=== PATIENT | male | born 1960 | race Caucasian/White ===

== ENCOUNTER 2024-02-08 12:14 | Emergency (ER) | payer MEDICARE ==
[2024-02-08 12:19] VITALS: TEMP 97.3
--- NOTE | 2024-02-08 13:05 | ED ---
Neck Injury/Pain HPI - General Chief Complaint: Neck Pain/Injury Stated Complaint: lt arm numb Time Seen by Provider: 02/08/24 13:01 Source: patient, RN notes reviewed Mode of arrival: ambulatory Limitations: no limitations - History of Present Illness Initial Comments: 63-year-old male presented to the ER with a chief complaint of neck pain. Patient states he underwent cervical spine fusion in July or August 2023. This was completed at [facility]. Patient reports about 4 days ago he was walking up the stairs in his garage patient states his supporting foot slipped causing him to jarr neck. Denies falling. Patient states since this incident he has been having an increase of pain to his neck. He describes it as "muscle spasms". He does state it is intermittent in nature. Patient also reports paresthesias to the left upper extremity. He does report a chronic history of this but since jarring incident this has been increased. Patient also was describing lumbar back pain and urinary dribbling. He states he will urinate and after urinating he will notice dribbling of urine in his undergarments. He has no history of prostate issues. He denies dysuria, hematuria, saddle paresthesias, fevers, abdominal pain, constipation/diarrhea. No bowel incontinence/retention. Patient reports his current pain is a 5 out of 10. He was sent here for urgent care for further evaluation. No other complaints. - Related Data Previous Rx's Medication Instructions Recorded predniSONE 50 mg PO DAILY #5 tab 02/08/24 Allergies Allergy/AdvReac Type Severity Reaction Status Date / Time No Known Allergies Allergy Verified 02/08/24 12:18 Review of Systems ROS Statement: Those systems with pertinent positive or pertinent negative responses have been documented in the HPI. ROS Other: All systems not noted in ROS Statement are negative. Past Medical History Past Medical History: No Reported History Past Surgical History: Orthopedic Surgery Additional Past Surgical History / Comment(s): plate in neck General Exam Limitations: no limitations General appearance: alert, in no apparent distress Head exam: Present: atraumatic, normocephalic, normal inspection Neck exam: Present: other (Healed midline surgical incision. There is muscle tenderness around C7) Respiratory exam: Present: normal lung sounds bilaterally. Absent: respiratory distress, wheezes, rales, rhonchi, stridor Cardiovascular Exam: Present: regular rate, normal rhythm, normal heart sounds. Absent: systolic murmur, diastolic murmur, rubs, gallop, clicks GI/Abdominal exam: Present: soft, normal bowel sounds. Absent: distended, tenderness, guarding, rebound, rigid Extremities exam: Present: normal inspection, full ROM, normal capillary refill, other (2+ bilateral radial and PT pulses. 5+ lower extremity strength.). Absent: tenderness, pedal edema, joint swelling, calf tenderness Back exam: Present: normal inspection Neurological exam: Present: alert, oriented X3, CN II-XII intact Skin exam: Present: warm, dry, intact, normal color. Absent: rash Course Vital Signs 02/08/24 02/08/24 02/08/24 12:16 12:32 13:18 Temperature 97.3 F L Pulse Rate 51 L 54 L 68 Respiratory 16 20 16 Rate Blood Pressure 159/89 152/88 127/88 O2 Sat by Pulse 99 98 98 Oximetry Medical Decision Making - Medical Decision Making Was pt. sent in by a medical professional or institution ([facility] [place], PRINCIPAL STATISTICAL SCIENTIST, urgent care, hospital, or fpc...) When possible be specific @ -[No] Did you speak to anyone other than the patient for history (EMS, parent, family, police, friend...)? What history was obtained from this source @ -[No] Did you review nursing and triage notes (agree or disagree)? Why? @ -[I reviewed and agree with nursing and triage notes] Were old charts reviewed (outside hosp., previous admission, EMS record, old EKG, old radiological studies, urgent care reports/EKG's, fpc records)? Report findings @ -[No old charts were reviewed] Differential Diagnosis (chest pain, altered mental status, abdominal pain women, abdominal pain men, vaginal bleeding, weakness, fever, dyspnea, syncope, headac he, dizziness, GI bleed, back pain, seizure, CVA, palpatations, mental health, musculoskeletal)? @ -[Differential Back Pain:Strain, zoster, cauda equina syndrome, epidural abscess, vertebral osteomyelitis, discitis, fracture, subluxation, disc herniation, DJD, spinal stenosis, dissection, AAA, pancreatitis, peptic ulcer disease, pyelonephritis, kidney stone, this is not meant to be an all-inclusive list.] EKG interpreted by me (3pts min.). @ -[None done] X-rays interpreted by me (1pt min.). @ -[None done] CT interpreted by me (1pt min.). @ -[None done] U/S interpreted by me (1pt. min.). @ -[None done] What testing was considered but not performed or refused? (CT, X-rays, U/S, labs)? Why? @ -[None] What meds were considered but not given or refused? Why? @ -[None] Did you discuss the management of the patient with other professionals (professionals i.e. , PA, PRINCIPAL STATISTICAL SCIENTIST, lab, RT, psych nurse, social media campaign manager, naturalization examiner, teacher, correctional officer lieutenant, case resource manager)? Give summary @ -[No] Was smoking cessation discussed for >3mins.? @ -[No] Was critical care preformed (if so, how long)? @ -[No] Were there social determinants of health that impacted care today? How? (Homelessness, low income, unemployed, alcoholism, drug addiction, transportation, low edu. Level, literacy, decrease access to med. care, detention, rehab)? @ -[No] Was there de-escalation of care discussed even if they declined (Discuss DNR or withdrawal of care, Hospice)? DNR status @ -[No] What co-morbidities impacted this encounter? (DM, HTN, Smoking, COPD, CAD, Cancer, CVA, ARF, Chemo, Hep., AIDS, mental health diagnosis, sleep apnea, morbid obesity)? @ -[None] Was patient admitted / discharged? Hospital course, mention meds given and route, prescriptions, significant lab abnormalities, going to OR and other [facility] info. @ -[hospital course] Undiagnosed new problem with uncertain prognosis? @ -[No] Drug Therapy requiring intensive monitoring for toxicity (Heparin, Nitro, Insulin, Cardizem)? @ -[No] Were any procedures done? @ -[No] Diagnosis/symptom? @ -[default] Acute, or Chronic, or Acute on Chronic? @ -[default] Uncomplicated (without systemic symptoms) or Complicated (systemic symptoms)? @ -[default] Side effects of treatment? @ -[No] Exacerbation, Progression, or Severe Exacerbation? @ -[No] Poses a threat to life or bodily function? How? (Chest pain, [place], [place], pneumonia, PE, COPD, DKA, ARF, appy, cholecystitis, CVA, Diverticulitis, Homicidal, Suicidal, threat to staff... and all critical care pts) @ -[No] - Lab Data Lab Results 02/08/24 Range/Units 13:19 Urine Color Colorless Urine Appearance Clear (Clear) Urine pH 6.5 (5.0-8.0) Ur Specific [place] 1.003 (1.001-1.035) Urine Protein Negative (Negative) Urine Glucose (UA) Negative (Negative) Urine Ketones Negative (Negative) Urine Blood Negative (Negative) Urine Nitrite Negative (Negative) Urine Bilirubin Negative (Negative) Urine Urobilinogen <2.0 (<2.0) mg/dL Ur Leukocyte Esterase Negative (Negative) Disposition Clinical Impression: Muscle spasm, S/P cervical spinal fusion Disposition: HOME SELF-CARE Condition: Stable Instructions (If sedation given, give patient instructions): Muscle Spasm (ED) Additional Instructions: Follow-up with surgeon if symptoms persist. I also recommend close follow-up with PCP. Return to the ER for any new or worsening concerns. Prescriptions: predniSONE 50 mg PO DAILY #5 tab Is patient prescribed a controlled substance at d/c from ED?: No Referrals: [facility] [NON-STAFF] - 1-2 days [facility] [NON-STAFF] - 1-2 days None,Stated [Primary Care Provider] - 1-2 days Forms: Area PCPs Time of Disposition: 14:36
[2024-02-08 13:20] VITALS: RESP 16
[2024-02-08 13:39] LABS: Appearance,Urine Clear (Clear); Bilirubin,Urine Negative (Negative); Blood,Urine Negative (Negative); Color,Urine Colorless; Glucose,Urine (UA) Negative (Negative); Ketones,Urine Negative (Negative); Leukocyte Esterase,Urine Negative (Negative); Nitrite,Urine Negative (Negative); PH, Urine 6.5 (5.0-8.0); Protein,Urine Negative (Negative); Specific Gravity,Urine 1.003 (1.001-1.035); Urobilinogen,Urine <2.0 mg/dL (<2.0)
--- NOTE | 2024-02-08 14:16 | CT ---
EXAMINATION TYPE: CT cervical spine wo con CT DLP: 345.9 mGycm, Automated exposure control for dose reduction was used. DATE OF EXAM: 02/08/2024 2:08 PM COMPARISON: None. CLINICAL INDICATION:Male, 63 years old with history of recent fusion neck pain; PHH, Recent neck fusi on, pain post fall on Wednesday TECHNIQUE: Axial CT images from the skull base to the inferior aspect of T2 we obtained without intra venous contrast. Coronal and sagittal reformatted images were also reviewed. FINDINGS: Fracture: None. Osseous structures: Postsurgical changes from ACDF C4-C7 with disc spacers. Hardware appears intact w ith appropriate alignment. Additional posterior fusion changes from C4 through C7 involving bilateral pedicular screws and rods and laminectomy changes at the C5-C6 levels. Hardware appears intact. Vertebral alignment: Within normal limits. Spinal canal/Neural Foramina: Broad-based disc bulge at C3-C4 without significant effacement of the a nterior thecal sac. No evidence for significant neural foraminal stenosis. Neck soft tissues: Prevertebral soft tissues are within normal limits. Other: The airway is patent. The lung apices are clear. Few mildly prominent cervical lymph nodes. IMPRESSION: 1. No evidence of cervical spine fracture. 2. Postsurgical fusion changes involving C4-C7. Hardware appears intact and appropriately aligned. 3. Mild degenerative disc disease at C3-C4. [facility], , 02/08/2024 2:13 PM
--- NOTE | 2024-02-08 14:20 | CT ---
EXAMINATION TYPE: CT lumbar spine wo con CT DLP: 748.8 mGycm, Automated exposure control for dose reduction was used. DATE OF EXAM: 02/08/2024 2:08 PM COMPARISON: None. CLINICAL INDICATION:Male, 63 years old with history of back pain s/p fall urine dribbling; PHH, Back pain s/p fall, urine dribbling TECHNIQUE: Multiple axial images were obtained from the midportion of T11 through the sacroiliac edith nts. Soft tissue and bone windows in coronal and sagittal planes were obtained and reviewed. Contrast used: none. Oral contrast used: none. FINDINGS: Alignment: There are 5 lumbar type vertebral bodies within normal alignment. Bone: No evidence of fracture is identified. Degenerative changes of the bilateral SI joint with rig ht anterior bridging. Discs: T12-L1: No spinal canal or neural foraminal stenosis is identified. L1-L2: No spinal canal or neural foraminal stenosis is identified. L2-L3: No spinal canal or neural foraminal stenosis is identified. L3-L4: Broad-based disc bulge with mild effacement of the anterior thecal sac. Ligamentum flavum shahid ling and bilateral facet arthropathy. Mild bilateral neural foraminal stenosis. L4-L5: Broad-based disc bulge with mild effacement of the anterior thecal sac. Mild bilateral neural foraminal stenosis. L5-S1: Broad-based disc bulge with mild effacement of the anterior thecal sac. Mild bilateral neural foraminal stenosis. Other: Nonobstructive right renal calculi with largest measured at 2 mm. Tiny hiatal hernia. Sigmoid diverticulosis without evidence for acute diverticulitis. IMPRESSION: 1. No evidence for spinal fracture. 2. Mild multilevel degenerative disc disease of the lumbar spine. 3. Nonobstructive right renal calculi. 4. Sigmoid diverticulosis without evidence for acute diverticulitis. [facility], , 02/08/2024 2:17 PM
[2024-02-08 14:57] VITALS: BP 130/75; PULSE 58
== END 2024-02-08 14:58 | disposition home or self-care (01) ==
LOC: EC 12:14
DX: M43.22 Fusion of spine, cervical region (principal); M62.838 Other muscle spasm
CPT/HCPCS: 72125; 72131; 81003; 99284